=== PATIENT | male | born 1985 | race Two or more races ===

== ENCOUNTER 2017-08-11 18:40 | Emergency (ER) | payer OTHER ==
[~2017-08-11] VITALS: Ht 160 cm; Wt 56.7 kg
== END 2017-08-11 20:43 | disposition home or self-care (01) ==
LOC: ER 18:40
DX: S91.341A Puncture wound with foreign body, right foot, initial encounter (principal); W45.0XXA Nail entering through skin, initial encounter; Y93.01 Activity, walking, marching and hiking; Y92.89 Other specified places as the place of occurrence of the external cause; Y99.8 Other external cause status

== ENCOUNTER 2018-04-19 15:07 | Emergency (ER) | payer OTHER ==
[~2018-04-19] VITALS: Ht 172.7 cm; Wt 62.6 kg
== END 2018-04-19 21:01 | disposition home or self-care (01) ==
LOC: ER 15:07
DX: J11.1 Influenza due to unidentified influenza virus with other respiratory manifestations (principal)

== ENCOUNTER 2019-01-16 08:30 | Emergency (ER) | payer OTHER ==
[~2019-01-16] VITALS: Ht 170.2 cm; Wt 63.5 kg
== END 2019-01-16 10:25 | disposition home or self-care (01) ==
LOC: ER 08:30
DX: T16.1XXA Foreign body in right ear, initial encounter (principal); W45.8XXA Other foreign body or object entering through skin, initial encounter; Y93.89 Activity, other specified; Y92.89 Other specified places as the place of occurrence of the external cause; Y99.8 Other external cause status